=== PATIENT | female | born 1950 | race Caucasian/White ===

== ENCOUNTER 2024-05-17 15:17 | Emergency (ER) | payer MEDICARE, BC, SELFPAY ==
--- NOTE | ~2024-05-17 | XR_ITS ---
EXAMINATION: XR ankle LT min 3V DATE: 05/17/2024 15:46 INDICATION: Left ankle injury and pain and swelling. TECHNIQUE: 4 views of left ankle were obtained. COMPARISON: None. FINDINGS: Alignment is normal. There are calcifications distal to lateral malleolus. Joint spaces are normal. There is an enthesophyte at posterior aspect of calcaneal tuberosity. There is ankle soft ti ssue swelling. IMPRESSION: 1. Calcifications distal to lateral malleolus, which may be acute avulsion fractures or chronic findi ngs. Reviewed, dictated and finalized at location A. ER DIETARY SERVICE MANAGER IMPRESSION: 1. Calcifications distal to lateral malleolus, which may be acute avulsion frac tures or chronic findings.
--- NOTE | 2024-05-17 15:27 | ED_ITS ---
HPI - Extremity Injury (Lower) General Chief Complaint: Extremity Injury, Lower Stated Complaint: Injured Left Leg Time Seen by Provider: 05/17/24 15:30 Source: patient Mode of arrival: ambulatory Limitations: no limitations History of Present Illness HPI Narrative: 74 y/o female presented for c/o pain and swelling to left ankle after injury 2 days ago. States while in [place] she rolled the ankle while getting out of bed, states she twisted it in the carpet. Has been walking on it. Was unable to ice or elevate for several hours during flight home yesterday. Denies numbness, tingling or weakness to the extremity. Related Data Allergies Allergy/AdvReac Type Severity Reaction Status Date / Time Sulfa (Sulfonamide Allergy Mild Hives Verified 05/17/24 16:06 Antibiotics) Review of Systems Review of Systems: CONSTITUTIONAL: Denies body aches, fever, chills EYES: Denies visual changes ENT: Denies rhinorrhea, congestion CARDIOVASCULAR: Denies chest pain, palpitations, or edema. RESPIRATORY: Denies cough or dyspnea. GASTROINTESTINAL: Denies abdominal pain, nausea, vomiting, or diarrhea. SKIN: Denies rash, itching, or wounds. MUSCULOSKELETAL: reports left ankle pain NEUROLOGIC: Denies numbness, tingling, or weakness. All systems reviewed & are unremarkable except as noted in HPI and below PMFSH Comments At time of signature, I have reviewed and agree with nursing past medical, surgical, social and family history unless otherwise noted. Please see nursing chart for further information. There is no relevant family history pertinent to the presenting complaint Exam Narrative: GENERAL: Well-appearing CHEST: Speaks in full sentences. No respiratory distress. HEART: Regular rate and rhythm. Normal and equal peripheral pulses. EXTREMITIES: Left foot has normal strength and sensation, normal range of motion with flexion/extension/rotation, but endorses pain to ankle with movement. Moderate foot/ankle swelling and ecchymosis to lateral ankle extending to the toes. Tender to proximal 4-5th metatarsals. No open wounds, or obvious deformity; alignment normal, pulse palpable and equal bilaterally, skin warm, dry, pink. Capillary refill less than 3 seconds. SKIN: Warm, dry NEURO: Alert and oriented x3. PSYCH: Normal mood and affect Course Course Emergency Course: Patient is aware of diagnosis, understands and agrees to treatment plan. Anticipatory guidance given. Patient agrees to follow-up as directed and is aware of reasons to seek care at the emergency department. Portions of this record may have been created with voice recognition software Level of Care: Express Care Visit Vital Signs Vital signs: Vital Signs Temperature 98.7 F 05/17/24 15:32 Pulse Rate 74 05/17/24 15:32 Respiratory Rate 16 05/17/24 15:32 Blood Pressure 159/83 H 05/17/24 15:32 Pulse Oximetry 100 05/17/24 15:32 Temperature 98.7 F 05/17/24 15:32 Pulse Rate 74 05/17/24 15:32 Respiratory Rate 16 05/17/24 15:32 Blood Pressure 159/83 H 05/17/24 15:32 Pulse Oximetry 100 05/17/24 15:32 Reviewed MDM - Extremity Injury (Lower) MDM Narrative Medical decision making narrative: Discussed physical exam findings; LISA applied. Pt is advised to treat as avulsion fracture. She resides in [place], and will be flying in 2 days. Advised walking boot from [employer], v/u. Advised supportive measures and signs/symptoms to go to the ER. Pt is appropriate for outpt treatment and f/u. Differential Diagnosis Differential diagnosis: Likely ankle sprain and strain and ankle fracture Imaging Data Radiologist's impression: Patient: Kanika Raman : 1950 MR#: [id number] Age: 74 Acct:[id number] [facility] Date: 05/17/24Attending Dr: Ordering Physician: Keli Trevino APRN Date of Service: 05/17/24 Procedure(s): XR ankle LT min 3V Accession Number(s): [id number] cc: Keli Trevino APRN; IT PORTFOLIO MANAGER PHYSICIAN~ EXAMINATION: XR ankle LT min 3V DATE: 05/17/2024 15:46 INDICATION: Left ankle injury and pain and swelling. TECHNIQUE: 4 views of left ankle were obtained. COMPARISON: None. FINDINGS: Alignment is normal. There are calcifications distal to lateral malleolus. Joint spaces are normal. There is an enthesophyte at posterior aspect of calcaneal tuberosity. There is ankle soft tissue swelling. IMPRESSION: 1. Calcifications distal to lateral malleolus, which may be acute avulsion fra ctures or chronic findings. Discharge Plan Discharge Clinical Impression: Ankle sprain and strain Patient Disposition: Home, Self-Care Condition: Stable Instructions: Antibiotic Form, Ankle Sprain (ED), Avulsion Fracture (ED) Additional Instructions: Rest and elevate the left leg; bear weight as tolerated. Avoid excessive walking, running or jumping until symptoms are fully resolved. Apply ice 15-20 minute intervals several times a day Keep it wrapped with LISA or use a soft ankle splint Motrin 800mg every 8 hours, alternate with Tylenol 1000mg every 8 hours as needed You can purchase the walking boot at [facility] [address], [place] [id number] Follow up with your primary care provider when you return Go to the ER for worsening symptoms or concerns Patient Language: Tunisian Follow-up/Referrals: PHYSICIAN,IT PORTFOLIO MANAGER [Primary Care Provider] - Time of Disposition: 16:07
[2024-05-17 15:32] VITALS: BP 159/83; PULSE 74; RESP 16; TEMP 37.1; O2SAT 100
== END 2024-05-17 16:13 | disposition home or self-care (01) ==
PROVIDERS: Emergency Provider Nurse Practitioner Family
DX: S93.402A Sprain of unspecified ligament of left ankle, initial encounter (principal); S96.912A Strain of unspecified muscle and tendon at ankle and foot level, left foot, initial encounter; X50.9XXA Other and unspecified overexertion or strenuous movements or postures, initial encounter; M19.90 Unspecified osteoarthritis, unspecified site; Z96.643 Presence of artificial hip joint, bilateral
CPT/HCPCS: 73610; 99213; G0463